=== PATIENT | female | born 1955 | race Caucasian/White ===

== ENCOUNTER → 2020-05-21 14:34 | Outpatient (CLI) | payer MEDICARE, OTHER, SELFPAY ==
--- NOTE | ~2020-05-21 | MM_ITS ---
EXAMINATION: MM screening genevieve BI w palmira HISTORY: Screening mammogram TECHNIQUE: Craniocaudal and mediolateral oblique 3-D tomosynthesis images were obtained and synthetic 2-D images were generated. CAD analysis was submitted and interpreted. COMPARISON: 01/01/2019 bilateral digital screening mammogram BREAST PARENCHYMAL COMPOSITION: There are scattered areas of fibroglandular density. FINDINGS: There are bilateral mammographic asymmetries. No malignant calcification, skin thickening or retraction is detected. IMPRESSION: 1. Bilateral mammographic asymmetries 2. Bilateral diagnostic mammography is recommended, with ultrasound if required BI-RADS Category 0: Incomplete: Needs additional imaging evaluation. Reviewed, dictated and finalized at location A.
== END ==
PROVIDERS: PCP Nurse Practitioner Family; Visit Provider Nurse Practitioner Family
DX: Z12.31 Encounter for screening mammogram for malignant neoplasm of breast (principal); R92.8 Other abnormal and inconclusive findings on diagnostic imaging of breast
CPT/HCPCS: 77063; 77067

== ENCOUNTER → 2020-06-09 08:05 | Outpatient (CLI) | payer MEDICARE, OTHER, SELFPAY ==
--- NOTE | ~2020-06-09 | MMUS_ITS ---
EXAMINATION: MM diagnostic mammo BI, US breast BI complete HISTORY: Bilateral breast asymmetries TECHNIQUE: Additional 3-D tomosynthesis images of the breasts were performed and synthetic 2-D images were generated. CAD analysis was submitted and interpreted. High resolution bilateral breast ultraso und was performed. COMPARISON: Comparison to multiple prior studies sequentially, with oldest reviewed study dated 11/2018. BREAST PARENCHYMAL COMPOSITION: The breasts are heterogenously dense, which may obscure small masses. FINDINGS: MAMMOGRAPHIC FINDINGS: There are no suspicious masses, calcifications or architectural distortion to suggest malignancy. ULTRASOUND: Bilateral breast ultrasound: Normal heterogeneous echotexture without focal solid or cystic mass. IMPRESSION: 1. No mammographic or sonographic evidence for malignancy in either breast. 2. Routine yearly screening mammogram and regular clinical breast examination are recommended. BI-RADS Category 1: Negative Reviewed, dictated and finalized at location A. IMPRESSION: 1. No mammographic or sonographic evidence for malignancy in either breast. 2. Routine yearly screening mammogram and regular clinical breast examination a re recommended. BI-RADS Category 1: Negative
== END ==
PROVIDERS: PCP Nurse Practitioner Family; Visit Provider Nurse Practitioner Family
DX: R92.8 Other abnormal and inconclusive findings on diagnostic imaging of breast (principal)
CPT/HCPCS: 76641; 77066

== ENCOUNTER 2022-11-23 06:40 | Day surgery (SDC) | payer MEDICARE, OTHER, SELFPAY ==
[2022-11-16 10:08] VITALS: BMI 25.8
--- NOTE | 2022-11-22 10:43 | WPDANESEPPF ---
Anes - Initial Pre Proc Eval Procedure: Operation Date: 11/23/22 08:30 Proposed Procedures p Cataract Extraction with Lens Implant-Left Eye - Raul Fowler MD Date/Time: 11/22/22 10:43 Surgeon: Raul Fowler MD Pre Op Diagnosis: Cataract Left Eye Patient Data Age: 67 Gender: F Height: 1.57 m Weight: 64 kg Allergies Allergy/AdvReac Type Severity Reaction Status Date / Time ibuprofen Allergy Severe Hives Verified 11/23/22 08:12 Home Medications Medication Instructions Recorded Confirmed Type amlodipine 5 mg tablet 5 mg PO DAILY 04/22/22 11/23/22 History aspirin 81 mg tablet,delayed 81 mg PO DAILY 04/22/22 11/23/22 History release atorvastatin 40 mg tablet 40 mg PO DAILY 04/22/22 11/23/22 History clopidogrel 75 mg tablet 75 mg PO DAILY 04/22/22 11/23/22 History cyanocobalamin (vitamin B-12) 1,000 mcg PO MONTHLY 04/22/22 11/23/22 History 1,000 mcg capsule duloxetine 60 mg capsule,delayed 60 mg PO DAILY 04/22/22 11/23/22 History release loratadine 10 mg tablet 10 mg PO DAILY 04/22/22 11/23/22 History potassium chloride 10 mEq 10 meq PO DAILY 04/22/22 11/23/22 History tablet,extended release(part/cryst) (Klor-Con M) spironolactone 25 mg tablet 25 mg PO DAILY 04/22/22 11/23/22 History Patient hx anesthesia problems: none Family hx anesthesia problems: none Results Review: All pre-operative results and documents have been reviewed as part of the pre-operative evaluation. [facility] Past Medical History Medical History Anxiety and depression COPD (chronic obstructive pulmonary disease) Coronary arteriosclerosis CVA (cerebrovascular accident due to intracerebral hemorrhage) Encounter for Papanicolaou smear for cervical cancer screening GERD (gastroesophageal reflux disease) Hearing loss Hyperlipemia Hypertension Mini stroke Screening mammogram, encounter for Surgical History Surgical History History of adenoidectomy History of intravascular stent placement (~07/02/20) stent placed in head left Ear History of tonsillectomy Hx of cholecystectomy S/P cryotherapy of skin lesion Family History Family History Father Hypertension Acute myocardial infarction Mother Hypertension Acute myocardial infarction Sibling Family history of Parkinson's disease Acute myocardial infarction Other Cerebrovascular accident Diabetes mellitus Family history of cardiovascular disease Social History Social History Smoking packs per day: 1 Smoking cigarettes per day: 20.0 Years smoked: 53 Smoking pack-years: 53.00 Smoking status: Current every day smoker Tobacco type: cigarettes Second hand tobacco smoke exposure: No Alcohol intake: never Substance use: never Substance use type: does not use Living arrangements: alone Additional living arrangements comments: Occupation/Education: retired 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 Gender identity (if verbalized by the patient): Female Sexual Orientation (if Verbalized by the Patient): Straight or Heterosexual Spiritual care concerns: No Anes - Eval Final PreProcedure Day of Procedure 11/22/22 10:43 Patient weight: obese Heart: regular rate and rhythm Lungs: clear to auscultation and normal air movement Airway: Mallampati scale class II Neurological: alert and oriented Last oral intake: >/= 8 hours ASA classification: III Emergent: no Anesthetic plan: proceed Anesthesia type and monitoring: monitored anesthesia care and standard monitoring Results Review: All pre-operative results and documents have been reviewed as part of the pre-operative evaluation. Informed Consent: The patient's anesthetic plan and its attendant risks and benefits were d
--- NOTE | 2022-11-23 08:01 | WPDHPUPDATE1 ---
History and Physical Update Update Date/Time: 11/23/22 08:01 History and Physical has been reviewed, including an updated exam of the patient. There are NO changes in the patient's condition. Risks, benefits, and alternatives have been discussed and questions answered. Patient agrees to proceed with procedure.
[2022-11-23] MEDS: OFLOXACIN 0.3% OPHTH SOLN 5 ML BTL 1 DROP AFFCTD EYE (08:08)
[2022-11-23] MEDS: TETRACAINE HCL 0.5% OPHTH SOLN 4 ML BTL 1 DROP AFFCTD EYE ×3 (08:08→08:18)
[2022-11-23 08:15] VITALS: BP 179/77; PULSE 62; RESP 20; TEMP 36.8; O2SAT 96
[2022-11-23] MEDS: LIDOCAINE HCL 2% JELLY 5 ML TUBE 1 APPLIC AFFCTD EYE (09:00)
[2022-11-23] MEDS: LIDOCAINE HCL 1% PF INJ 5 ML VIAL 1 ML INTRAOCULA (09:10)
[2022-11-23] MEDS: HOME MEDICATION 1 EACH AFFCTD EYE (09:16)
[2022-11-23] MEDS: NEOMYCIN/POLYMYXIN/DEXAMETH OP OINT 3.5 GM TUBE 1 APPLIC AFFCTD EYE (09:16)
[2022-11-23 09:25] VITALS: BP 135/75; PULSE 87; RESP 18; O2SAT 97
[2022-11-23] MEDS: acetaZOLAMIDE TAB 250 MG TABLET PO (09:30)
--- NOTE | 2022-11-23 09:51 | WPDANESPN ---
Anes - Prog Note Post-Op Date/Time: 11/23/22 09:51 Cardiovascular status: normal Respiratory status: normal Airway patency: baseline Mental status: baseline Post-Op hydration status: normal Vital Signs: Last Vital Signs Temp 36.8 C 11/23/22 08:15 Pulse 62 11/23/22 08:15 Resp 20 11/23/22 08:15 BP 179/77 H 11/23/22 08:15 Pulse Ox 96 11/23/22 08:15 O2 Del Method Room Air 11/23/22 08:15 Pain Score (VAS): 0 Post-procedural complaints: none Patient Feedback: Patient satisfied with anesthetic care. Other Findings: Patient vital signs back to baseline. Patient denies nausea and vomiting. Patient's pain under control. Patient OK for discharge.
--- NOTE | 2022-11-23 12:29 | W.PM.PROC2 ---
Procedure Note - Detailed Date of Procedure 11/23/22 Pre-op Diagnosis Cataract Left Eye Post-op Diagnosis Same Procedure Performed Cataract Extraction (by Phacoemulsification) and lntraocular Lens Implant Surgeon Raul Fowler MD Anesthesia MAC Description of Procedure The eye was anesthetized with topical 0.75% bupivacaine. After intravenous sedation and placement of monitors, the patient was prepped and draped in the usual sterile manner. A lid speculum was placed. A paracentesis was made, and preservative free 1% lidocaine was instilled in the anterior chamber. The anterior chamber was then filled with Viscoat viscoelastic. A jose keratome was used to create the wound. Continuous tear anterior capsulotomy was performed. The lens was hydro dissected before being removed with phacoemulsification. The remaining lenticular cortex was removed with aspiration. The capsular bag was polished and filled with viscoelastic material. An intraocular lens was chosen, inspected, irrigated and placed within the capsular bag where it was seen to be centered and stable. The viscoelastic material was aspirated. The wound was closed and found to be watertight. Ciloxan drops were placed in the eye. The speculum was removed. A Lozada shield was applied. The patient tolerated the procedure well and left the operating room in satisfactory condition. Implants See chart Complications None Condition Stable Disposition Same day
== END 2022-11-23 09:50 | disposition home or self-care (01) ==
PROVIDERS: PCP Nurse Practitioner Family; Visit Provider Student in an Organized Health Care Education/Training Program
PROC: (CPT 66983; principal; 2022-11-23 08:30)
DX: H25.12 Age-related nuclear cataract, left eye (principal)
CPT/HCPCS: 66984

== ENCOUNTER 2022-12-07 06:32 | Day surgery (SDC) | payer MEDICARE, OTHER, SELFPAY ==
[2022-11-30 08:47] VITALS: BMI 28.8
[2022-12-07 06:45] VITALS: BP 126/81; PULSE 94; RESP 20; TEMP 36.4; O2SAT 100
[2022-12-07] MEDS: TETRACAINE HCL 0.5% OPHTH SOLN 4 ML BTL 1 DROP AFFCTD EYE ×3 (06:59→07:11)
[2022-12-07] MEDS: OFLOXACIN 0.3% OPHTH SOLN 5 ML BTL 1 DROP AFFCTD EYE (06:59)
--- NOTE | 2022-12-07 07:22 | WPDANESEPPF ---
Anes - Initial Pre Proc Eval Procedure: Operation Date: 12/07/22 07:50 Proposed Procedures p Cataract Extraction with Lens Implant-Right Eye - Raul Fowler MD Date/Time: 12/07/22 07:22 Surgeon: Raul Fowler MD Pre Op Diagnosis: Age Related Nuclear Cataract Right Eye Patient Data Age: 67 Gender: F Height: 1.57 m Weight: 64.4 kg Last Vital Signs Temp 36.4 C 12/07/22 06:45 Pulse 94 12/07/22 06:45 Resp 20 12/07/22 06:45 BP 126/81 12/07/22 06:45 Pulse Ox 100 12/07/22 06:45 O2 Del Method Room Air 12/07/22 06:45 Allergies Allergy/AdvReac Type Severity Reaction Status Date / Time ibuprofen Allergy Severe Hives Verified 11/23/22 08:12 diphenhydramine Allergy Intermediate Other Verified 12/07/22 07:10 [From [facility]] Home Medications Medication Instructions Recorded Confirmed Type amlodipine 5 mg tablet 5 mg PO DAILY 04/22/22 11/30/22 History aspirin 81 mg tablet,delayed 81 mg PO DAILY 04/22/22 12/07/22 History release atorvastatin 40 mg tablet 40 mg PO DAILY 04/22/22 11/30/22 History clopidogrel 75 mg tablet 75 mg PO DAILY 04/22/22 12/07/22 History cyanocobalamin (vitamin B-12) 1,000 mcg PO MONTHLY 04/22/22 11/30/22 History 1,000 mcg capsule duloxetine 60 mg capsule,delayed 60 mg PO DAILY 04/22/22 12/07/22 History release loratadine 10 mg tablet 10 mg PO DAILY 04/22/22 11/30/22 History potassium chloride 10 mEq 10 meq PO DAILY 04/22/22 12/07/22 History tablet,extended release(part/cryst) (Klor-Con M) spironolactone 25 mg tablet 25 mg PO DAILY 04/22/22 11/30/22 History Patient hx anesthesia problems: none Family hx anesthesia problems: none Results Review: All pre-operative results and documents have been reviewed as part of the pre-operative evaluation. [facility] Past Medical History Medical History Anxiety and depression COPD (chronic obstructive pulmonary disease) Coronary arteriosclerosis CVA (cerebrovascular accident due to intracerebral hemorrhage) Encounter for Papanicolaou smear for cervical cancer screening GERD (gastroesophageal reflux disease) Hearing loss Hyperlipemia Hypertension Mini stroke Screening mammogram, encounter for Surgical History Surgical History History of adenoidectomy History of intravascular stent placement (~07/02/20) stent placed in head left Ear History of tonsillectomy Hx of cholecystectomy S/P cryotherapy of skin lesion Family History Family History Father Hypertension Acute myocardial infarction Mother Hypertension Acute myocardial infarction Sibling Family history of Parkinson's disease Acute myocardial infarction Other Cerebrovascular accident Diabetes mellitus Family history of cardiovascular disease Social History Social History Smoking packs per day: 1 Smoking cigarettes per day: 20.0 Years smoked: 53 Smoking pack-years: 53.00 Smoking status: Never smoker Tobacco type: cigarettes Second hand tobacco smoke exposure: No Alcohol intake: never Substance use: never Substance use type: does not use Living arrangements: alone Additional living arrangements comments: Occupation/Education: retired 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
--- NOTE | 2022-12-07 07:25 | WPDHPUPDATE1 ---
History and Physical Update Update Date/Time: 12/07/22 07:25 History and Physical has been reviewed, including an updated exam of the patient. There are NO changes in the patient's condition. Risks, benefits, and alternatives have been discussed and questions answered. Patient agrees to proceed with procedure.
[2022-12-07] MEDS: NEOMYCIN/POLYMYXIN/DEXAMETH OP OINT 3.5 GM TUBE 1 APPLIC AFFCTD EYE (07:27)
[2022-12-07] MEDS: LIDOCAINE HCL 1% PF INJ 5 ML VIAL 1 ML INTRAOCULA (07:28)
[2022-12-07] MEDS: LIDOCAINE HCL 2% JELLY 5 ML TUBE 1 APPLIC AFFCTD EYE (07:42)
[2022-12-07] MEDS: HOME MEDICATION 1 EACH AFFCTD EYE (07:53)
[2022-12-07 08:18] VITALS: BP 127/73; PULSE 91; RESP 15; O2SAT 98
[2022-12-07] MEDS: acetaZOLAMIDE TAB 250 MG TABLET PO (08:24)
--- NOTE | 2022-12-07 11:35 | W.PM.PROC2 ---
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 After intravenous sedation and placement of monitors, the patient was prepped and draped in the usual sterile manner. A lid speculum was placed. A paracentesis was made, and preservative free 1% lidocaine was instilled in the anterior chamber. The anterior chamber was then filled with Viscoat viscoelastic. A jose keratome was used to create the wound. Continuous tear anterior capsulotomy was performed. The lens was hydro dissected before being removed with phacoemulsification. The remaining lenticular cortex was removed with aspiration. The capsular bag was polished and filled with viscoelastic material. An intraocular lens was chosen, inspected, irrigated and placed within the capsular bag where it was seen to be centered and stable. The viscoelastic material was aspirated. The wound was closed and found to be watertight. Ciloxan drops were placed in the eye. The speculum was removed. A Lozada shield was applied. The patient tolerated the procedure well and left the operating room in satisfactory condition. Implants See chart Complications None Condition Stable Disposition Same day
--- NOTE | 2022-12-07 11:45 | WPDANESPN ---
Anes - Prog Note Post-Op Date/Time: 12/07/22 11:45 Cardiovascular status: normal Respiratory status: normal Airway patency: baseline Mental status: baseline Post-Op hydration status: normal Vital Signs: Last Vital Signs Temp 36.4 C 12/07/22 06:45 Pulse 91 12/07/22 08:18 Resp 15 12/07/22 08:18 BP 127/73 12/07/22 08:18 Pulse Ox 98 12/07/22 08:18 O2 Del Method Room Air 12/07/22 08:18 Pain Score (VAS): 0 Post-procedural complaints: none Patient Feedback: Patient satisfied with anesthetic care.
== END 2022-12-07 08:40 | disposition home or self-care (01) ==
PROVIDERS: PCP Nurse Practitioner Family; Visit Provider Student in an Organized Health Care Education/Training Program
PROC: (CPT 66983; principal; 2022-12-07 07:50)
DX: H25.11 Age-related nuclear cataract, right eye (principal)
CPT/HCPCS: 66984